=== PATIENT | male | born 1940 | race Caucasian/White ===

== ENCOUNTER 2025-05-08 09:00 | Emergency (ER) | payer OTHER ==
[2025-05-08] MEDS ORDERED: IBUPROFEN 200 MG TAB PO ONE (09:38)
[2025-05-08] MEDS ORDERED: IBUPROFEN 400 MG TAB ONE (09:38)
--- NOTE | 2025-05-08 09:38 | RAD REPORT ---
EXAMINATION: Hand Right 3 View VIEWS: Three views CLINICAL INDICATION: Male, 84 years old. PAIN COMPARISON: No prior exams IMPRESSION: Splint present which obscures the fine bony detail. Fifth proximal phalangeal fracture involving the mid and distal aspect but no definite intra-articular extension. This has some foreshortening and angulation. There is at least a half shaft width of volar displacement.
--- NOTE | 2025-05-08 10:35 | ER ---
Nurse's Notes [facility] Name: Ty Alaniz Age: 84 yrs Sex: Male : 1940 Arrival Date: 05/08/2025 Time: 09:00 Bed 15 Private MD: Diagnosis: Displaced fracture of proximal phalanx of finger-RIGHT 5TH;Fall on same level, unspecified;Pain in right hand;Other specified sprain of right wrist Presentation: 05/08 09:15 Chief complaint: Patient states: had a splint placed to right hand by Dr. Montoya iw yesterday , it's causing him a lot of pain and wants it removed. Coronavirus screen: At this time, the client does not indicate any symptoms associated with coronavirus-19. Ebola Screen: No symptoms or risks identified at this time. Initial Sepsis Screen: Does the patient meet any 2 criteria? No. Patient's initial sepsis screen is negative. Does the patient have a suspected source of infection? No. Patient's initial sepsis screen is negative. Risk Assessment: Do you want to hurt yourself or someone else? Patient reports no desire to harm self or others. Onset of symptoms was May 08, 2025. 09:15 Method Of Arrival: Ambulatory iw 09:15 Acuity: WON 4 iw Historical: - Allergies: 09:16 No Known Allergies; iw - PMHx: 09:16 Myocardial infarction; iw - PSHx: 09:16 knee; iw 09:17 cardiac stent; iw - Immunization history:: Adult Immunizations unknown. - Infectious Disease History:: Denies. - Social history:: Smoking status: . - Family history:: not pertinent. Screenin:30 [facility] ED Fall Risk Assessment (Adult) History of falling in the last 3 months, af3 including since admission No falls in past 3 months (0 pts) Confusion or Disorientation No (0 pts) Intoxicated or Sedated No (0 pts) Impaired Gait No (0 pts) Mobility Assist Device Used No (0 pt) Altered Elimination No (0 pt) Score/Fall Risk Level 0 - 2 = Low Risk Oriented to surroundings, Maintained a safe environment, Educated pt \T\ family on fall prevention, incl call for assistance when getting out of bed. Abuse screen: Denies threats or abuse. Denies injuries from another. Nutritional screening: No deficits noted. Tuberculosis screening: No symptoms or risk factors identified. Assessment: 09:30 General: Appears in no apparent distress. comfortable, well groomed, well developed. af3 09:30 Pain: Complains of pain in dorsum of right hand. Neuro: Level of Consciousness is af3 awake, alert, obeys commands, Oriented to person, place, time, situation, Appropriate for age. Cardiovascular: Patient's skin is warm and dry. Respiratory: Airway is patent Respiratory effort is even, unlabored, Respiratory pattern is regular, symmetrical. Musculoskeletal: Circulation, motion, and sensation intact. 10:15 Reassessment: Dr Bowden at bedside for splint placement. af3 10:20 Reassessment: Patient appears in no apparent distress at this time. No changes from af3 previously documented assessment. Patient and/or family updated on plan of care and expected duration. Pain level reassessed. Discharge pending results of Xray . Vital Signs: 09:15 BP 129 / 85; Pulse 70; Resp 16; Temp 98.1; Pulse Ox 97% ; Weight 99.79 kg; Height 6 ft. iw 0 in. ; Pain 3/10; 11:35 BP 118 / 72; Pulse 69; Resp 18; Temp 98.2; Pulse Ox 99% on R/A; af3 09:15 Body Mass Index 29.84 (99.79 kg, 182.88 cm) iw 09:15 Pain Scale: Adult iw ED Course: 09:03 Patient arrived in ED. cj3 09:07 William Bowden MD is Attending Physician. gerber 09:16 Triage completed. iw 09:20 Breanna Devries RN is Primary Nurse. af3 09:27 Hand Right 3 View XRAY In Process Unspecified. EDMS 09:30 Patient has correct armband on for positive identification. Bed in low position. Call af3 light in reach. Provided Education on: call light use . 09:30 No provider procedures requiring assistance completed. af3 10:15 Orthoglass splint: To R hand. af3 10:32 Wrist Right 3 View XRAY In Process Unspecified. EDMS 10:32 Jimmy Montoya MD is Referral Physician. gerber 10:39 Patient did not have IV access during this emergency room visit. af3 10:40 Arm band placed on Patient placed in an exam room, on a stretcher. af3 Administered Medications: 09:51 Drug: Ibuprofen PO 600 mg PO once Route: PO; af3 10:38 Follow up: Response: No adverse reaction af3 Medication: 09:30 VIS not applicable for this client. af3 Outcome: 10:34 Discharge ordered by . gerber 11:34 Discharged to home ambulatory, af3 11:34 Condition: good 11:34 Discharge instructions given to patient, Instructed on discharge instructions, follow up and referral plans. medication usage, Demonstrated understanding of instructions, follow-up care, medications, Prescriptions given X 1, 11:35 Patient left the ED. af3 Signatures: Dispatcher [employer] EDMS William Bowden MD MD cha Williams, Irene, RN RN iw Breanna Devries RN RN af3 Yoselin Bear cj3 Corrections: (The following items were deleted from the chart) 09:16 09:15 Pulse 61bpm; Resp 16bpm; Temp 98.1F; iw iw 09:17 09:15 BP 129 / 85; Pulse 50bpm; Resp 16bpm; Pulse Ox 97%; Temp 98.1F; 99.79 kg; Height iw 6 ft. 0 in.; BMI: 29.8; Pain 3/10, Adult; iw
--- NOTE | 2025-05-08 10:35 | EDPHYS ---
Physician Documentation [facility] Name: Ty Alaniz Age: 84 yrs Sex: Male : 1940 Arrival Date: 05/08/2025 Time: 09:00 Bed 15 Private MD: ED Physician William Bowden HPI: 05/08 10:24 This 84 yrs old Male presents to ER via Ambulatory with complaints of Hand gerber Injury - RT. 10:24 The patient or guardian reports decreased range of motion, pain. The complaints affect gerber the right hand diffusely. Context: The problem was sustained at home. Onset: The symptoms/episode began/occurred 3 day(s) ago. Modifying factors: The symptoms are alleviated by elevation, holding still, splinting. Associated signs and symptoms: The patient has no apparent associated signs or symptoms. Severity of symptoms: At their worst the symptoms were moderate, in the emergency department the symptoms are unchanged. The patient has not experienced similar symptoms in the past. Historical: - Allergies: 09:16 No Known Allergies; iw - PMHx: 09:16 Myocardial infarction; iw - PSHx: 09:16 knee; iw 09:17 cardiac stent; iw - Immunization history:: Adult Immunizations unknown. - Infectious Disease History:: Denies. - Social history:: Smoking status: . - Family history:: not pertinent. ROS: 10:24 Constitutional: Negative for fever, chills, and weight loss, Eyes: Negative for injury, gerber pain, redness, and discharge, ENT: Negative for injury, pain, and discharge, Neck: Negative for injury, pain, and swelling, Cardiovascular: Negative for chest pain, palpitations, and edema, Respiratory: Negative for shortness of breath, cough, wheezing, and pleuritic chest pain, Abdomen/GI: Negative for abdominal pain, nausea, vomiting, diarrhea, and constipation, Back: Negative for injury and pain, : Negative for injury, bleeding, discharge, and swelling, Skin: Negative for injury, rash, and discoloration, Neuro: Negative for headache, weakness, numbness, tingling, and seizure, Psych: Negative for depression, anxiety, suicide ideation, homicidal ideation, and hallucinations, Allergy/Immunology: Negative for hives, rash, and allergies, Endocrine: Negative for neck swelling, polydipsia, polyuria, polyphagia, and marked weight changes, Hematologic/Lymphatic: Negative for swollen nodes, abnormal bleeding, and unusual bruising, 10:24 MS/extremity: Positive for decreased range of motion, pain, swelling, tenderness, of the right hand, Exam: 10:24 Constitutional: This is a well developed, well nourished patient who is awake, alert, gerber and in no acute distress. Head/Face: Normocephalic, atraumatic. Eyes: Pupils equal round and reactive to light, extra-ocular motions intact. Lids and lashes normal. Conjunctiva and sclera are non-icteric and not injected. Cornea within normal limits. Periorbital areas with no swelling, redness, or edema. ENT: Nares patent. No nasal discharge, no septal abnormalities noted. Tympanic membranes are normal and external auditory canals are clear. Oropharynx with no redness, swelling, or masses, exudates, or evidence of obstruction, uvula midline. Mucous membranes moist. Neck: Trachea midline, no thyromegaly or masses palpated, and no cervical lymphadenopathy. Supple, full range of motion without nuchal rigidity, or vertebral point tenderness. No Meningismus. Chest/axilla: Normal chest wall appearance and motion. Nontender with no deformity. No lesions are appreciated. Cardiovascular: Regular rate and rhythm with a normal S1 and S2. No gallops, murmurs, or rubs. Normal PMI, no JVD. No pulse deficits. Respiratory: Lungs have equal breath sounds bilaterally, clear to auscultation and percussion. No rales, rhonchi or wheezes noted. No increased work of breathing, no retractions or nasal flaring. Abdomen/GI: Soft, non-tender, with normal bowel sounds. No distension or tympany. No guarding or rebound. No evidence of tenderness throughout. Back: No spinal tenderness. No costovertebral tenderness. Full range of motion. Male : Normal genitalia with no discharge or lesions. Skin: Warm, dry with normal turgor. Normal color with no rashes, no lesions, and no evidence of cellulitis. Neuro: Awake and alert, GCS 15, oriented to person, place, time, and situation. Cranial nerves II-XII grossly intact. Motor strength 5/5 in all extremities. Sensory grossly intact. Cerebellar exam normal. Normal gait. Psych: Awake, alert, with orientation to person, place and time. Behavior, mood, and affect are within normal limits. 10:24 Musculoskeletal/extremity: ROM: limited active range of motion, limited passive range of motion, Circulation is intact in all extremities. Compartment Syndrome exam of affected extremity: is normal. severe pain, with passive ROM, Weight bearing: able to fully bear weight, Vital Signs: 09:15 BP 129 / 85; Pulse 70; Resp 16; Temp 98.1; Pulse Ox 97% ; Weight 99.79 kg; Height 6 ft. iw 0 in. ; Pain 3/10; 11:35 BP 118 / 72; Pulse 69; Resp 18; Temp 98.2; Pulse Ox 99% on R/A; af3 09:15 Body Mass Index 29.84 (99.79 kg, 182.88 cm) iw 09:15 Pain Scale: Adult iw MDM: 09:07 Medical Screening Exam initiated gerber 10:30 Differential diagnosis: closed fracture, contusion, tendonitis. Data reviewed: vital gerber signs, nurses notes, radiologic studies. Consideration of Admission/Observation Escalation of care including admission/observation considered. I considered the following discharge prescriptions or medication management in the emergency department Medications were administered in the Emergency Department. See MAR. Independent interpretation of the following test(s) in the Emergency Department X-Ray: My interpretation is . Test considered but Not performed: Labs: NO LABS. Historians other than the Patient: PT WELL INFORMED. Care significantly affected by the following chronic conditions: Hypertension, CAD/ND. 05/08 09:07 Order name: Hand Right 3 View XRAY; Complete Time: 09:52 gerber 05/08 09:53 Order name: Wrist Right 3 View XRAY [facility] 05/08 09:22 Order name: Misc. Order: REMOVE SPLINT, REPLACE; Complete Time: 09:51 gerber Administered Medications: 09:51 Drug: Ibuprofen PO 600 mg PO once Route: PO; af3 10:38 Follow up: Response: No adverse reaction af3 Disposition Summary: 05/08/25 10:34 Discharge Ordered Notes: Location: Home gerber Problem: new gerber Symptoms: have improved gerber Condition: Stable gerber Diagnosis - Displaced fracture of proximal phalanx of finger - RIGHT 5TH gerber - Fall on same level, unspecified gerber - Pain in right hand gerber - Other specified sprain of right wrist gerber Followup: greber - With: Private Physician - When: 2 - 3 days - Reason: Recheck today's complaints, Continuance of care, Re-evaluation by your physician Followup: gerber - With: Jimmy Montoya MD - When: 2 - 3 days - Reason: Recheck today's complaints, Continuance of care, Re-evaluation by your physician Discharge Instructions: - Discharge Summary Sheet gerber - Finger Fracture, Adult gerber - Musculoskeletal Pain gerber - Wrist Pain, Adult gerber - Finger Fracture, Adult, [id number] gerber - Wrist Pain, Adult, [id number] gerber - How to Use Cold Therapy [facility] - Hand Pain [facility] Forms: - Medication Reconciliation Form [facility] - Antibiotic Education gerber - Prescription Opioid Use gerber - Patient Portal Instructions [facility] - Leadership Thank You Letter [facility] Prescriptions: - Tylenol-Codeine #3 300mg-30mg Oral tablet - take 2 tablets ORAL route every 6 hours As needed; 16 tablet; Refills: 0, gerber Product Selection Permitted Signatures: Dispatcher [employer] William Adams MD MD cha Williams, Irene, RN RN iw Fry, Ashley, RN RN af3
--- NOTE | 2025-05-08 16:27 | RAD REPORT ---
EXAMINATION: XR RIGHT WRIST CLINICAL INDICATION: PAIN RIGHT TECHNIQUE: Multiple projections of the right wrist were obtained. COMPARISON: No prior exam. 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 Moderate arthritic changes also s een at the STT joint and first CMC joint. No acute fracture or dislocation is evident. Splint material is in place, reducing bone detail.
== END 2025-05-08 11:35 | disposition home or self-care (01) ==
LOC: ER 09:00
PROC: 2W0 Placement, Anatomical Regions, Change (ICD-10-PCS; principal; 2025-05-08)
DX: S62.616A Displaced fracture of proximal phalanx of right little finger, initial encounter for closed fracture (principal); S63.591A Other specified sprain of right wrist, initial encounter; W18.30XA Fall on same level, unspecified, initial encounter
CPT/HCPCS: 99284